=== PATIENT | male | born 2000 | race Asian ===

== ENCOUNTER 2025-02-14 08:51 | Inpatient (IN) | payer OTHER ==
[~2025-02-14] VITALS: Ht 185.4 cm; Wt 89.9 kg
[2025-02-14] MEDS: NICOTINE 14 MG/24 HR TRANSDERMAL TD SCH (09:00)
[2025-02-14 09:56] LABS: HEMATOCRIT 48.5 % (42.0-52.0); HEMOGLOBIN 15.8 g/dl (13.5-17.5); MEAN CORPUSCULAR HEMOGLOBIN 30.1 pg (27.0-33.0); MEAN CORPUSCULAR HGB CONC 32.6 g/dl (32.0-36.5); MEAN CORPUSCULAR VOLUME 92.4 fl (80.0-96.0); PLATELET COUNT, AUTOMATED 237 10^3/uL (150-450); RED BLOOD COUNT 5.25 10^6/uL (4.30-6.10); WHITE BLOOD COUNT 4.2 10^3/uL (4.0-10.0)
[2025-02-14 10:18] LABS: AMPHETAMINES LEVEL URINE NEGATIVE (NEGATIVE); BARBITURATES URINE NEGATIVE (NEGATIVE); BENZODIAZEPINES URINE NEGATIVE (NEGATIVE); CANNABINOIDS URINE NEGATIVE (NEGATIVE); COCAINE METABOLITE URINE NEGATIVE (NEGATIVE); METHADONE URINE NEGATIVE (NEGATIVE); OPIATES URINE NEGATIVE (NEGATIVE); PHENCYCLIDINE URINE NEGATIVE (NEGATIVE)
[2025-02-14 10:34] LABS: ETHYL ALCOHOL (ETHANOL) < 0.003 % (0.000-0.010)
[2025-02-14 10:35] LABS: SALICYLATE LEVEL < 3.0 MG/DL (<30)
[2025-02-14 10:36] LABS: ALBUMIN 4.3 G/DL (3.2-5.2); ALKALINE PHOSPHATASE 69 U/L (40-129); ALT/SGPT 20 U/L (7.0-40); AST/SGOT 12 U/L (<34); BILIRUBIN,DIRECT 0.2 MG/DL (<0.4); BILIRUBIN,TOTAL 0.9 MG/DL (0.3-1.2); BLOOD UREA NITROGEN 15 MG/DL (9-23); CALCIUM LEVEL 9.7 MG/DL (8.5-10.1); CARBON DIOXIDE LEVEL 28 MMOL/L (20-31); CHLORIDE LEVEL 103 MMOL/L (98-107); CREATININE FOR GFR 0.77 MG/DL (0.70-1.30); GLOMERULAR FILTRATION RATE > 60.0 (>60); GLUCOSE, FASTING 87 MG/DL (60-100); POTASSIUM SERUM 4.3 MMOL/L (3.5-5.1); SODIUM LEVEL 139 MMOL/L (136-145); TOTAL PROTEIN 8.3 G/DL (5.7-8.2)
[2025-02-14 10:37] LABS: THYROID STIMULATING HORMONE 0.886 uIU/ML (0.55-4.78)
[2025-02-14] MEDS ORDERED: MAALOX 30 ML SUSP *UDC PO PRN (13:45)
[2025-02-14] MEDS ORDERED: LORazepam 1 MG TAB PO PRN (13:45)
[2025-02-14] MEDS ORDERED: ACETAMINOPHEN 325 MG TAB PO PRN (13:45)
[2025-02-14] MEDS ORDERED: MOM 30ML SUSPENSION UDC PO PRN (13:45)
[2025-02-14] MEDS ORDERED: OLANZapine 5 MG TAB PO PRN (13:45)
[2025-02-14] MEDS ORDERED: traZODone 50 MG TAB PO PRN (13:45)
[2025-02-14] MEDS ORDERED: diphenhydrAMINE 25MG CAP PO PRN (13:45)
[2025-02-14 14:38] VITALS: BP 136/71; TEMP 97.6; O2SAT 99
[2025-02-15 06:57] VITALS: BP 137/66; TEMP 97.6; O2SAT 96
[2025-02-15 15:43] VITALS: BP 140/81; TEMP 97.8; O2SAT 99
[2025-02-15] MEDS ORDERED: HOME MED LIST COMPLETE! XX SCH (15:50)
[2025-02-16 06:58] VITALS: BP 99/54; TEMP 97.8; O2SAT 98
[2025-02-16 15:10] VITALS: BP 120/60; TEMP 97.8; O2SAT 99
[2025-02-17 06:31] VITALS: BP 135/66; TEMP 97.6; O2SAT 97
== END 2025-02-17 12:51 | disposition home or self-care (01) | DRG 882 ==
LOC: M ED 08:51 → EDBD 08:51 → M ED INP 13:43 → M PSY 14:30
PROVIDERS: ADMIT Internal Medicine; ATTEND Psychiatry & Neurology Psychiatry
DX: F43.22 Adjustment disorder with anxiety (principal); M54.59 Other low back pain